=== PATIENT | female | born 1965 | race Caucasian/White ===

== ENCOUNTER 2022-05-14 09:33 | Emergency (ER) | payer BC | END 2022-05-14 11:00 | disposition home or self-care (01) | LOC: JD.ED 09:33 | DX: S63.502A Unspecified sprain of left wrist, initial encounter (principal); S50.02XA Contusion of left elbow, initial encounter; Z88.0 Allergy status to penicillin; Z90.49 Acquired absence of other specified parts of digestive tract; W00.0XXA Fall on same level due to ice and snow, initial encounter | CPT/HCPCS: 73090-26-LT; 73090-LT; 99283 ==

== ENCOUNTER 2024-02-29 18:52 | Emergency (ER) | payer BC | END 2024-02-29 20:15 | LOC: JD.ED 18:52 | DX: S52.592A Other fractures of lower end of left radius, initial encounter for closed fracture (principal); Z86.16 Personal history of COVID-19; Z90.49 Acquired absence of other specified parts of digestive tract; Z88.0 Allergy status to penicillin; Z88.1 Allergy status to other antibiotic agents; Z88.8 Allergy status to other drugs, medicaments and biological substances; Z88.6 Allergy status to analgesic agent; W11.XXXA Fall on and from ladder, initial encounter | CPT/HCPCS: 29125; 73110-26-LT; 73110-LT; 99283-25 ==